=== PATIENT | male | born 1975 | race Caucasian/White ===

== ENCOUNTER → 2019-09-21 | Outpatient (CLI) | payer MEDICAID ==
--- NOTE | 2019-09-21 16:01 | RADIOLOGY REPORT (SQ) ---
EXAM DESCRIPTION: CT ABD/PELVIS NO ORAL OR IV COMPLETED DATE/TIME: 09/21/2019 1:27 pm REASON FOR STUDY: R31.0 GROSS HEMATURIA R31.0 GROSS HEMATURIA COMPARISON: None. TECHNIQUE: CT scan of the abdomen and pelvis performed without intravenous or oral contrast. Images reviewed with lung, soft tissue, and bone windows. Reconstructed coronal and sagittal MPR images revi ewed. All images stored on PACS. All CT scanners at this facility use dose modulation, iterative reconstruction, and/or weight based d osing when appropriate to reduce radiation dose to as low as reasonably achievable (ALARA). [facility]: Dose Right [facility]: CareDose [facility]: Dose Right [facility]: Teradose 4D [facility]: Smart [employer] (EPS) RADIATION DOSE: CT Rad equipment meets quality standard of care and radiation dose reduction techniq ues were employed. CTDIvol: 7.2 - 8.9 mGy. DLP: 522 mGy-cm.mGy. LIMITATIONS: None. FINDINGS: LOWER CHEST: There is a large retrocardiac hernia containing nearly the entire stomach, an d a portion of the distal transverse and splenic flexure colon. This is best shown on axial images 3 through 7. Lung bases are grossly clear. NON-CONTRASTED LIVER, SPLEEN, ADRENALS: Evaluation limited by lack of IV contrast. No identified sign ificant masses. PANCREAS: No masses. No peripancreatic inflammatory changes. GALLBLADDER: Gallstones. No inflammatory changes to suggest cholecystitis. RIGHT KIDNEY AND URETER: No suspicious masses. Assessment limited by lack of IV contrast. No signif icant calcifications. No hydronephrosis or hydroureter. LEFT KIDNEY AND URETER: No suspicious masses. Assessment limited by lack of IV contrast. No signifi cant calcifications. No hydronephrosis or hydroureter. AORTA AND RETROPERITONEUM: No aneurysm. No retroperitoneal masses or adenopathy. BOWEL AND PERITONEAL CAVITY: No obvious masses or inflammatory changes. No free fluid. APPENDIX: Normal. PELVIS, BLADDER, AND ABDOMINAL WALL:No abnormal masses. No free fluid. Bladder normal. BONES: Non ambulatory patient with convex leftward thoracic or lumbar curvature and bilateral chronic hip dislocation OTHER: No other significant finding. IMPRESSION: No CT findings to explain history of hematuria. Nonambulatory patient with convex leftward lumbar curvature and chronic bilateral hip dislocations. Large retrocardiac hernia containing the entire stomach and splenic flexure colon Calcified stones in the gallbladder without gallbladder wall thickening or pericholecystic fluid COMMENT: Quality ID # [id number]: Final reports with documentation of one or more dose reduction techniques (e.g., Automated exposure control, adjustment of the mA and/or kV according to patient size, use of iterative reconstruction technique) TECHNICAL DOCUMENTATION: JOB ID: [id number] 2010 [employer]- All Rights Reserved Reading location - IP/workstation name: [email or web address]
== END ==
LOC: RAD 13:14
PROVIDERS: ATTEND Urology
DX: R31.0 Gross hematuria (principal)
CPT/HCPCS: 74176